=== PATIENT | female | born 1980 | race Caucasian/White ===

== ENCOUNTER 2025-03-28 13:28 | Outpatient (CLI) | payer BC | END 2025-03-28 13:29 | disposition home or self-care (01) | LOC: BICMAMMO 13:28 | DX: Z12.31 Encounter for screening mammogram for malignant neoplasm of breast (principal); Z80.3 Family history of malignant neoplasm of breast; Z85.820 Personal history of malignant melanoma of skin | CPT/HCPCS: 77063; 77067 ==